=== PATIENT | female | born 1975 | race Two or more races ===

== ENCOUNTER 2025-04-20 13:40 | Inpatient (IN) | payer MEDICAID ==
[~2025-04-20] VITALS: Ht 162.6 cm; Wt 81.4 kg
[~2025-04-20 13:40] MED LIST: PANT40TA2 PO; ZOFR4T PO
--- NOTE | 2025-04-20 14:38 | ECG ---
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
--- NOTE | 2025-04-20 14:50 | ED.PDOC ---
HPI Comments 49 y.o female presents to the ED for a chief complaint of substernal chest pain associated with right arm pain and SOB that started 4-5 hours ago. Patient describes pain as a tightness that is constant, and rating a 7/10 on the pain scale. Patient reports previous chest pain but this episode is different and worse. Patient denies any nausea, vomiting, fever, chills or leg swelling. Patient admits to using methamphetamine 3-4 days ago and has a history of tobacco and alcohol use. Chief Complaint: Shortness of Breath Time Seen by MD: 14:33 Primary Care Provider: AUDREY Reviewed Notes: Nurses Notes, Medications, Allergies Allergies: Coded Allergies: NO KNOWN ALLERGIES (Unverified , 07/22/24) Home Meds Active Scripts Pantoprazole Sodium Sesquihydr (Protonix) 40 Mg Tab, 40 MG PO DAILY, #30 TAB Prov:TRACEY SANDOVAL MD 07/22/24 Ondansetron Odt 4MG Tab (ZOFRAN PO) 4 Mg Tb, 4 MG PO Q8HP PRN for 5 Days, #15 TAB ODT TAB-DISSOLVE IN MOUTH, THEN SWALLOW Prov:TRACEY SANDOVAL MD 07/22/24 Information Source: Patient Mode of Arrival: Ambulatory Severity: Moderate Timing: Hours Duration: Since onset Location: Substernal Radiation: Arm (R) Quality: Tightness Onset: At Rest Cardiac Risk Factors: Smoker PE Risk Factors: None History of: None Modifying Factors: Nothing Associated Signs and Symptoms: SOB Past Medical History PAST MEDICAL HISTORY: Anxiety, Schizophrenia Surgical History: Appendectomy, Cholecystectomy, Tubal Ligation Surgical History (Other): left knee and ankle replacement 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 Family History Family History: Reviewed,noncontributory to illness Social History Smoker: Cigarettes Alcohol: Rarely Drugs: Denies Drug Use Lives In: Home Constitutional: denies: chills, diaphoresis, fatigue, fever, malaise, sweats, weakness, others EENTM: denies: blurred vision, double vision, ear bleeding, ear discharge, ear drainage, ear pain, ear ringing, eye pain, eye redness, hearing loss, mouth pain, mouth swelling, nasal discharge, nose bleeding, nose congestion, nose pain, photophobia, tearing, throat pain, throat swelling, voice changes, others Respiratory: reports: SOB at rest, shortness of breath; denies: cough, hemoptysis, orthopnea, SOB with excertion, stridor, wheezing, others Cardiovascular: reports: chest pain; denies: dizzy spells, diaphoresis, Dyspnea on exertion, edema, irregular heart beat, left arm pain, lightheadedness, palpitations, PND, syncope, others Gastrointestinal: denies: abdomen distended, abdominal pain, blood streaked bowels, constipated, diarrhea, dysphagia, difficulty swallowing, hematemesis, melena, nausea, poor appetite, poor fluid intake, rectal bleeding, rectal pain, vomiting, others Genitourinary: denies: abnormal vagina bleeding, burning, dyspareunia, dysuria, flank pain, frequency, hematuria, incontinence, pain, , vagina discharge, urgency, others Neurological: denies: dizziness, fainting, headache, left sided numbness, left sided weakness, numbness, paresthesia, pre-existing deficit, right sided numbness, right sided weakness, seizure, speech problems, tingling, tremors, weakness, others Musculoskeletal: denies: back pain, gout, joint pain, joint swelling, muscle pain, muscle stiffness, neck pain, others Integumetry: denies: bruises, change in color, change in hair/nails, dryness, laceration, lesions, lumps, rash, wounds, others Allergic/Immunocompromised: denies: Difficulty Healing, Frequent Infections, Hives, Itching, others Hematologic/Lymphatic: denies: anemia, blood clots, easy bleeding, easy bruising, swollen glands, others Endocrine: denies: excessive hunger, excessive sweating, excessive thirst, excessive urination, flushing, intolerance to cold, intolerance to heat, une xplained weight gain, unexplained weight loss, others Psychiatric: denies: anxiety, bipolar disorder, depression, hopeless, panic disorder, schizophrenia, sleepless, suicidal, others All Other Systems: Reviewed and Negative Physical Exam General Appearance: Moderate Distress HEENT: Normal ENT Inspection, Pharynx Normal, TMs Normal Neck: Full Range of Motion, Non-Tender, Normal, Normal Inspection Respiratory: Chest Non-Tender, Lungs Clear, No Accessory Muscle Use, No Respiratory Distress, Normal Breath Sounds Cardiovascular: No Edema, No JVD, No Murmur, No Gallop, Normal Peripheral Pulses, Regular Rate/Rhythm Breast Exam: Deferred Gastrointestinal: No Organomegaly, Non Tender, No Pulsatile Mass, Normal Bowel Sounds, Soft Genitalia: Deferred Pelvic: Deferred Rectal: Deferred Extremities: No calf tenderness, Normal capillary refill, Normal inspection, Normal range of motion, Non-tender, No pedal edema Musculoskeletal : Apperance: Normal Neurologic: Alert, 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 Was a procedure done?: No CP Differential Dx Differential Diagnosis: N/A Differential Diagnosis: Angina, Chest Wall Pain, Costochondritis, Gastritis, Myocardial Infarction, Pericarditis X-Ray, Labs, Meds, VS Vital Signs Date Time Temp Pulse Resp B/P (MAP) Pulse Ox O2 Delivery O2 Flow Rate FiO2 04/20/25 15:23 98.0 94 14 94/57 (69) 95 98.0 04/20/25 15:23 94 18 95 Room Air* 0 21 04/20/25 14:50 97 04/20/25 13:59 97 04/20/25 13:52 98.4 103 20 91/67 (75) 96 98.4 Lab Test 04/20/25 16:07 04/20/25 15:07 04/20/25 14:35 Range/Units Troponin I High Sensitivity < 3 L < 3 L </=34 ng/L White Blood Count 9.4 4.4-10.8 10^3/uL Red Blood Count 5.01 4.0-5.20 10^6/uL Hemoglobin 14.8 12.2-16.2 g/dL Hematocrit 44.0 36.0-46.0 % Mean Corpuscular Volume 87.7 80.0-100.0 fL Mean Corpuscular Hemoglobin 29.5 28.0-32.0 pg Mean Corpuscular Hemoglobin Concent 33.7 32.0-36.0 g/dL Red Cell Distribution Width 13.6 11.8-14.3 % Platelet Count 334 140-450 10^3/uL Mean Platelet Volume 8.0 6.9-10.8 fL Neutrophils (%) (Auto) 66.0 37.0-80.0 % Lymphocytes (%) (Auto) 19.8 10.0-50.0 % Monocytes (%) (Auto) 7.9 0.0-12.0 % Eosinophils (%) (Auto) 5.8 0.0-7.0 % Basophils (%) (Auto) 0.5 0.0-2.0 % Neutrophils # (Auto) 6.2 1.6-8.6 10 ^3/uL Lymphocytes # (Auto) 1.9 0.4-5.4 10 ^3/uL Monocytes # (Auto) 0.7 0-1.3 10 ^3/uL Eosinophils # (Auto) 0.5 0-0.8 10 ^3/uL Basophils # (Auto) 0 0-0.2 10 ^3/uL Nucleated Red Blood Cells 0.1 % D-Dimer, Quantitative < 0.19 0.0-0.49 mg/L FEU Sodium Level 141 136-145 mmol/L Potassium Level 4.2 3.5-5.1 mmol/L Chloride Level 105 98-107 mmol/L Carbon Dioxide Level 29 20-31 mmol/L Anion Gap 7 5-15 Blood Urea Nitrogen 21 9-23 mg/dL Creatinine 0.89 0.550-1.02 mg/dL Glomerular Filtration Rate Calc 79 >90 mL/min BUN/Creatinine Ratio 23.6 H 10.0-20.0 Serum Glucose 97 74-106 mg/dL Calcium Level 10.0 8.7-10.4 mg/dL Urine Opiates Screen Neg NEGATIVE Urine Fentanyl Screen Neg NEGATIVE Urine Barbiturates Screen Neg NEGATIVE Urine Phencyclidine Screen Neg NEGATIVE Urine Amphetamines Screen Pos NEGATIVE Urine Benzodiazepines Screen Neg NEGATIVE Urine Cocaine Screen Neg NEGATIVE Urine Cannabinoids Screen Neg NEGATIVE Current Medications Medications (Trade) Dose Ordered Sig/Rika Route Start Time Stop Time Status Last Admin Aspirin 162 mg ONCE ONCE PO 04/20/25 14:45 04/20/25 14:46 DC 04/20/25 14:55 The patient was given aspirin here in the emergency department The urine tox is positive for methamphetamines The patient's CBC and chemistry panel is within normal limits The troponin level x2 is negative The patient was given aspirin here in the emergency department's The chest x-ray shows: No sign of any abnormalities The patient is being admitted Images Reviewed?: Images reviewed and evaluated by me Time of 1ST Reevaluation: 14:47 Reevaluation 1ST: Unchanged Patient Education/Counseling: Diagnosis, Treatment, Prognosis Family Education/Counseling: No Family Present Departure 1 Departure Time of Disposition: 17:27 Impression: Primary Impression: Acute coronary syndrome Additional Impression: Methamphetamine use Disposition: 09 ADMITTED INPATIENT Admit to: Tele Condition: Fair Critical Care Note Critical Care Time?: Yes (35 min-critical care time only) Stability Stability form required: Yes Unstable for transfer: Telemetry monitoring (Telemetry monitoring required), ED Physician Assesment (Clinical assesment) Heart Score Heart Score: Heart Score Response (Comments) Value History Moderate Suspicious 1 EKG Repolarization Disturb 1 Age 45-64 1 Risk Factors >3 or Hx ASHD 2 Troponin Normal limit 0 Total 5 I personally scribed for TRACEY SANDOVAL MD ([email or web address]) on 04/20/25 at 14:50. Electronically submitted by Katerin Pete ([facility]). TRACEY SANDOVAL MD April 20, 2025 14:50
[2025-04-20] MEDS: ASPirin 81 mg TAB PO ONE (14:55)
[2025-04-20 15:23] VITALS: PULSE 94; RESP 18; O2SAT 95
[2025-04-20 15:27] LABS: Basophils # (auto) 0 10 ^3/uL (0-0.2); Basophils % (auto) 0.5 % (0.0-2.0); Eosinophils # (auto) 0.5 10 ^3/uL (0-0.8); Eosinophils % (auto) 5.8 % (0.0-7.0); Hemoglobin 14.8 g/dL (12.2-16.2); Lymphocytes # (auto) 1.9 10 ^3/uL (0.4-5.4); Lymphocytes % (auto) 19.8 % (10.0-50.0); Mean Corpuscular Hemoglobin 29.5 pg (28.0-32.0); Mean Corpuscular Hgb Conc. 33.7 g/dL (32.0-36.0); Mean Corpuscular Volume 87.7 fL (80.0-100.0); Monocytes # (auto) 0.7 10 ^3/uL (0-1.3); Monocytes % (auto) 7.9 % (0.0-12.0); Neutrophils # (auto) 6.2 10 ^3/uL (1.6-8.6); Nucleated Red Blood Cells % 0.1 %; Platelet Count (auto) 334 10^3/uL (140-450); Red Blood Cells 5.01 10^6/uL (4.0-5.20); Red Cell Distribution Width 13.6 % (11.8-14.3); White Blood Cell 9.4 10^3/uL (4.4-10.8)
[2025-04-20 15:32] LABS: Amphetamine Screen, Urine Pos (NEGATIVE); Barbiturate Scree,Urine Neg (NEGATIVE); Benzodiazephine Screen, Urine Neg (NEGATIVE); Cannabinoid Screen, Urine Neg (NEGATIVE); Cocaine Screen, Urine Neg (NEGATIVE); Opiate Scree,Urine Neg (NEGATIVE); Phencyclidine Screen, Urine Neg (NEGATIVE)
[2025-04-20 15:33] LABS: Chloride 105 mmol/L (98-107); Potassium 4.2 mmol/L (3.5-5.1); Sodium 141 mmol/L (136-145)
[2025-04-20 15:34] LABS: Anion Gap 7 (5-15); Carbon Dioxide 29 mmol/L (20-31)
[2025-04-20 15:39] LABS: BUN/Creatinine Ratio 23.6 (10.0-20.0); Blood Urea Nitrogen 21 mg/dL (9-23); Glucose 97 mg/dL (74-106)
--- NOTE | 2025-04-20 16:18 | DVHHP2 ---
Admitting Diagnosis: Chest pain History of Present Illness 49 y.o female presents to the ED for a chief complaint of substernal chest pain associated with right arm pain and SOB that started 4-5 hours ago. Patient describes pain as a tightness that is constant, and rating a 7/10 on the pain scale. Patient reports previous chest pain but this episode is different and worse. Patient denies any nausea, vomiting, fever, chills or leg swelling. Patient admits to using methamphetamine 3-4 days ago and has a history of tobacco and alcohol use. 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 Family History Family History: Reviewed,noncontributory to illness Social History Smoker: Cigarettes Alcohol: Rarely Drugs: Denies Drug Use Lives In: Home Allergies: Coded Allergies: NO KNOWN ALLERGIES (Unverified , 07/22/24) Home Meds Active Scripts Pantoprazole Sodium Sesquihydr (Protonix) 40 Mg Tab, 40 MG PO DAILY, #30 TAB Prov:TRACEY SANDOVAL MD 07/22/24 Ondansetron Odt 4MG Tab (ZOFRAN PO) 4 Mg Tb, 4 MG PO Q8HP PRN for 5 Days, #15 TAB ODT TAB-DISSOLVE IN MOUTH, THEN SWALLOW Prov:TRACEY SANDOVAL MD 07/22/24 Vital Signs Vital Signs Date Time Temp Pulse Resp B/P (MAP) Pulse Ox O2 Delivery O2 Flow Rate FiO2 04/20/25 15:23 98.0 94 14 94/57 (69) 95 98.0 04/20/25 15:23 Room Air* 0 21 Physical Exam Generally-9 years old woman, well nourished HEENT-atraumatic, normocephalic Heart-regular rate and rhythm Lungs clear to auscultate bilaterally Abdomen soft nontender nondistended Musculoskeletal-no edema cyanosis Neuro-AO x3, no focal deficits Results Labs Test 04/20/25 16:07 04/20/25 15:07 04/20/25 14:35 Range/Units Troponin I High Sensitivity < 3 L </=34 ng/L White Blood Count 9.4 4.4-10.8 10^3/uL Red Blood Count 5.01 4.0-5.20 10^6/uL Hemoglobin 14.8 12.2-16.2 g/dL Hematocrit 44.0 36.0-46.0 % Mean Corpuscular Volume 87.7 80.0-100.0 fL Mean Corpuscular Hemoglobin 29.5 28.0-32.0 pg Mean Corpuscular Hemoglobin Concent 33.7 32.0-36.0 g/dL Red Cell Distribution Width 13.6 11.8-14.3 % Platelet Count 334 140-450 10^3/uL Mean Platelet Volume 8.0 6.9-10.8 fL Neutrophils (%) (Auto) 66.0 37.0-80.0 % Lymphocytes (%) (Auto) 19.8 10.0-50.0 % Monocytes (%) (Auto) 7.9 0.0-12.0 % Eosinophils (%) (Auto) 5.8 0.0-7.0 % Basophils (%) (Auto) 0.5 0.0-2.0 % Neutrophils # (Auto) 6.2 1.6-8.6 10 ^3/uL Lymphocytes # (Auto) 1.9 0.4-5.4 10 ^3/uL Monocytes # (Auto) 0.7 0-1.3 10 ^3/uL Eosinophils # (Auto) 0.5 0-0.8 10 ^3/uL Basophils # (Auto) 0 0-0.2 10 ^3/uL Nucleated Red Blood Cells 0.1 % D-Dimer, Quantitative < 0.19 0.0-0.49 mg/L FEU Sodium Level 141 136-145 mmol/L Potassium Level 4.2 3.5-5.1 mmol/L Chloride Level 105 98-107 mmol/L Carbon Dioxide Level 29 20-31 mmol/L Anion Gap 7 5-15 Blood Urea Nitrogen 21 9-23 mg/dL Creatinine 0.89 0.550-1.02 mg/dL Glomerular Filtration Rate Calc 79 >90 mL/min BUN/Creatinine Ratio 23.6 H 10.0-20.0 Serum Glucose 97 74-106 mg/dL Calcium Level 10.0 8.7-10.4 mg/dL Urine Opiates Screen Neg NEGATIVE Urine Fentanyl Screen Neg NEGATIVE Urine Barbiturates Screen Neg NEGATIVE Urine Phencyclidine Screen Neg NEGATIVE Urine Amphetamines Screen Pos NEGATIVE Urine Benzodiazepines Screen Neg NEGATIVE Urine Cocaine Screen Neg NEGATIVE Urine Cannabinoids Screen Neg NEGATIVE Primary Diagnosis chest pain likely due to amphetamine use coronary spasm Plan EKG normal sinus rhythm, urine drug study positive for amphetamine D-dimer negative Check echo of the heart for abnormal structure Troponin negative. Trend troponin Pain control IV fluids Cardiac diet Full code Lovenox for DVT prophylaxis No GI prophylaxis needed Plan discussed with: Patient Problems List: (1) Chest pain (2) Methamphetamine use Status: Acute Date of Service: April 20, 2025 Billing Provider: RAFA BRYANT MD Common Visit Codes: [id number] INP/OBS CARE (MOD) RAFA BRYANT MD April 20, 2025 16:18
[2025-04-20] MEDS ORDERED: ACETAMINOPHEN 325 MG TAB PO PRN (16:45)
[2025-04-20] MEDS ORDERED: NITROGLYCERIN 0.4 MG SL TAB SL PRN (16:45)
[2025-04-20] MEDS ORDERED: DOCUSATE SOD 100 MG CAP PO PRN (16:45)
[2025-04-20] MEDS ORDERED: HYDROcodone-ACET 5/325MG TAB PO PRN (16:45)
[2025-04-20] MEDS ORDERED: MORPHINE SULFATE INJ 2 MG/ml SYRG IV PRN (16:45)
[2025-04-20] MEDS ORDERED: ONDANSETRON HCL 4 MG/2 ML VIAL IV PRN (16:45)
[2025-04-20 16:55] VITALS: BP 102/68; PULSE 86; RESP 18; TEMP 98.1; O2SAT 99
[2025-04-20 20:56] VITALS: BP 85/50; PULSE 71; RESP 17; TEMP 98; O2SAT 96
[2025-04-20] MEDS: SODIUM CHLOR 0.9% PF (SALINE LOCK) 10ML VIAL/SYR IV SCH (21:00)
[2025-04-20 21:56] VITALS: BP 90/56; PULSE 76; RESP 17; TEMP 96.5; O2SAT 94
[2025-04-20] MEDS ORDERED: NITR-52 PO (22:04)
[2025-04-20] MEDS ORDERED: VENL75CA3 PO (22:04)
[2025-04-20] MEDS ORDERED: TOPI100T68 PO (22:04)
[2025-04-20] MEDS ORDERED: TRAZ1TAB12 PO (22:04)
[2025-04-21 00:18] VITALS: BP 92/55; PULSE 60; RESP 17; TEMP 97.8; O2SAT 97
[2025-04-21 05:00] VITALS: BP 76/51; PULSE 72; RESP 17; TEMP 96.8; O2SAT 94; O2SAT 97
[2025-04-21 05:59] VITALS: BP 98/62
[2025-04-21 08:00] VITALS: PULSE 63; RESP 17; O2SAT 99
[2025-04-21 09:00] VITALS: BP 85/54; PULSE 63; RESP 17; TEMP 97.3; O2SAT 99
[2025-04-21] MEDS: ENOXAPARIN SOD 40 MG/0.4 ML SYRINGE SC SCH (09:59)
[2025-04-21 13:00] VITALS: BP 104/70; PULSE 79; RESP 18; TEMP 97; O2SAT 97
--- NOTE | 2025-04-21 13:33 | DVHPN2 ---
Reviewed: Care Plan, H&P, Labs, Medications, Previous Orders, Radiology Changes from previous H/P or p: No Changes Objective Vitals Vital Signs Date Time Temp Pulse Resp B/P (MAP) Pulse Ox O2 Delivery O2 Flow Rate FiO2 04/21/25 09:00 97.3 63 17 85/54 (64) 99 97.3 04/21/25 08:00 Room Air* 0 21 Intake/Output Intake and Output 04/21/25 07:00 Intake Total 1000 ml Balance 1000 ml Intake Oral 1000 ml # Voids 4 Medications Current Medications Medications Dose Ordered Sig/Rika Route Start Time Stop Time Status Last Admin Dose Admin Sodium Chloride 10 ml Q8HR IV 04/20/25 22:00 04/21/25 06:36 10 ML Docusate Sodium 100 mg BIDPRN PRN PO 04/20/25 16:45 Acetaminophen 650 mg Q6HP PRN PO 04/20/25 16:45 Acetaminophen/ Hydrocodone Bitart 1 tab Q4HP PRN PO 04/20/25 16:45 Ondansetron HCl 4 mg Q4HP PRN IV 04/20/25 16:45 Enoxaparin Sodium 40 mg DAILY SC 04/21/25 10:00 04/21/25 09:59 40 MG Nitroglycerin 0.4 mg Q5MINP PRN SL 04/20/25 16:45 Morphine Sulfate 2 mg Q30M PRN IV 04/20/25 16:45 Laboratory Results Laboratory Tests 04/20/25 15:07 Chemistry Test 04/20/25 15:07 Calcium Level 10.0 mg/dL (8.7-10.4) Coagulation Test 04/20/25 15:07 D-Dimer, Quantitative < 0.19 mg/L FEU (0.0-0.49) Labs and/or images reviewed: Labs reviewed by me, Image(s) reviewed by me Assessment/Plan Assessment/Plan Chest pain probably secondary to amphetamine abuse troponin negative x3, cardiology consult Schizophrenia Anxiety Amphetamine abuse: Counseling Plan discussed with: Patient My Orders Orders - ROSEMARY RUIZ MD Procedure Category Date Status Time * Cardiology Consult CONS 04/21/25 Verified 13:30 Date of Service: April 21, 2025 Billing Provider: ROSEMARY RUIZ MD Common Visit Codes: [id number] INP/OBS CARE(HIGH) ROSEMARY RUIZ MD April 21, 2025 13:33
--- NOTE | 2025-04-21 14:29 | DVHINCON2 ---
Date Seen: April 21, 2025 Referring Physician MD William Reason for Consultation Chest pain, amphetamine abuse History of Present Illness This is a 49-year-old female who presented to the emergency room with a chief complaint of chest pain for two days. Describes his chest pain as substernal, sharp in nature, constant, radiating to the right upper extremity, and associated with mild shortness of breath. At time of assessment, the patient denied any further cardiac symptoms. Endorses her symptoms to an anxiety attack. She admits to recent methamphetamine use three days ago. States she has been using methamphetamines on an of since 15 y.o. She underwent a 12 lead electrocardiogram revealing a sinus rhythm suggestive of left atrial enlargement and nonspecific global ST changes. Serial troponin levels are negative. Significant medical history includes obesity, anxiety, schizophrenia, tobacco use, and methamphetamine abuse. Past Medical History Past medical history reviewed. No other significant than mentioned above. Past Surgical History Appendectomy Cholecystectomy Left knee/ankle BTL Family History: Patient reports no known family medical history. Family History Family history reviewed. Denies for cardiovascular disease. Social History Denies the use of alcohol. Admits to methamphetamine use once per week. Smokes three cigarettes per day. Allergies: Coded Allergies: NO KNOWN ALLERGIES (Unverified , 07/22/24) Home Meds Active Scripts Pantoprazole Sodium Sesquihydr (Protonix) 40 Mg Tab, 40 MG PO DAILY, #30 TAB Prov:TRACEY SANDOVAL MD 07/22/24 Ondansetron Odt 4MG Tab (ZOFRAN PO) 4 Mg Tb, 4 MG PO Q8HP PRN for 5 Days, #15 TAB ODT TAB-DISSOLVE IN MOUTH, THEN SWALLOW Prov:TRACEY SANDOVAL MD 07/22/24 Reported Medications Trazodone Hcl (Trazodone Hcl) 150 Mg Tab, 200 MG PO, MG 04/20/25 Venlafaxine Hydrochloride (Effexor Xr) 75 Mg Cap, 75 MG PO DAILY, CAP 04/20/25 Topiramate (Topiramate) 100 Mg Tab, 100 MG PO DAILY for 30 Days, MG 04/20/25 Nitrofurantoin (Nitrofurantoin) 100 Mg Cap, 100 MG PO BID, CAP 04/20/25 Home Meds Home medications reviewed. Current Medications Current Medications Medications (Trade) Dose Ordered Sig/Rika Route PRN Reason Start Time Stop Time Status Last Admin Sodium Chloride (Saline Lock Ns) 10 ml Q8HR IV 04/20/25 22:00 04/21/25 14:13 Docusate Sodium (Colace Capsule) 100 mg BIDPRN PRN PO FOR CONSTIPATION 04/20/25 16:45 Acetaminophen (Tylenol Tablet) 650 mg Q6HP PRN PO PAIN SCALE 1-3 OR TEMP>100.4 04/20/25 16:45 Acetaminophen/ Hydrocodone Bitart ([place] 5/325MG Tab) 1 tab Q4HP PRN PO MODERATE PAIN (4-6 PAIN SCALE) 04/20/25 16:45 Ondansetron HCl (Zofran) 4 mg Q4HP PRN IV NAUSEA / VOMITING 04/20/25 16:45 Enoxaparin Sodium (Lovenox) 40 mg DAILY SC 04/21/25 10:00 04/21/25 09:59 Nitroglycerin (Ntrostat Sublingual) 0.4 mg Q5MINP PRN SL FOR CHEST PAIN 04/20/25 16:45 Morphine Sulfate 2 mg Q30M PRN IV FOR CHEST PAIN 04/20/25 16:45 Review of Systems Constitutional: No symptom reported Ears, Nose, & Throat: No symptom reported Eyes: No symptom reported Neurological: No symptoms reported Pulmonary/Respiratory: No symptom reported Cardiovascular: Chest pain Gastrointestinal: No symptom reported Genitourinary: No symptom reported Musculoskeletal: No symptom reported Skin: No symptom reported Psychiatric: No symptom reported Endocrine: No symptom reported Hemotologic/Lymphatic: No symptom reported Vital Signs Vital Signs Date Time Temp Pulse Resp B/P (MAP) Pulse Ox O2 Delivery O2 Flow Rate FiO2 04/21/25 13:00 97.0 79 18 104/70 (81) 97 97.0 04/21/25 08:00 Room Air* 0 21 Physical Exam General Appearance: Cooperative. Well developed. Obese. In no acute distress Head Exam: Normal inspection Neck Exam: Normal inspection. Non-tender. Normal alignment Pulmonary/Respiratory: Chest non-tender. Clear bilateral breath sounds Cardiovascular/Chest: Regular rate and rhythm. S1, S2. Sinus rhythm with nonspecific ST changes. No murmurs. No JVD. Peripheral Pulses: 2+ Radial (R). 2+ Radial (L). 2+ Pedal (R). 2+ Pedal (L) Abdominal Exam: Normal bowel sounds. Soft. Nontender. No hepatospenomegaly. No masses Ankle Exam: Negative ankle edema Lower extremities: Negative lower extremity edema Neuro/Mental Status: A&O x4. Coherent Thoughts/Psych: Normal thought pattern. Appropriate mood and affect. Pleasant Appearance: In no acute distress Skin Exam: Normal inspection. Normal color. Warm. Dry Labs/Diagnostic Data Labs Test 04/20/25 16:07 04/20/25 15:07 04/20/25 14:35 Range/Units Troponin I High Sensitivity < 3 L </=34 ng/L White Blood Count 9.4 4.4-10.8 10^3/uL Red Blood Count 5.01 4.0-5.20 10^6/uL Hemoglobin 14.8 12.2-16.2 g/dL Hematocrit 44.0 36.0-46.0 % Mean Corpuscular Volume 87.7 80.0-100.0 fL Mean Corpuscular Hemoglobin 29.5 28.0-32.0 pg Mean Corpuscular Hemoglobin Concent 33.7 32.0-36.0 g/dL Red Cell Distribution Width 13.6 11.8-14.3 % Platelet Count 334 140-450 10^3/uL Mean Platelet Volume 8.0 6.9-10.8 fL Neutrophils (%) (Auto) 66.0 37.0-80.0 % Lymphocytes (%) (Auto) 19.8 10.0-50.0 % Monocytes (%) (Auto) 7.9 0.0-12.0 % Eosinophils (%) (Auto) 5.8 0.0-7.0 % Basophils (%) (Auto) 0.5 0.0-2.0 % Neutrophils # (Auto) 6.2 1.6-8.6 10 ^3/uL Lymphocytes # (Auto) 1.9 0.4-5.4 10 ^3/uL Monocytes # (Auto) 0.7 0-1.3 10 ^3/uL Eosinophils # (Auto) 0.5 0-0.8 10 ^3/uL Basophils # (Auto) 0 0-0.2 10 ^3/uL Nucleated Red Blood Cells 0.1 % D-Dimer, Quantitative < 0.19 0.0-0.49 mg/L FEU Sodium Level 141 136-145 mmol/L Potassium Level 4.2 3.5-5.1 mmol/L Chloride Level 105 98-107 mmol/L Carbon Dioxide Level 29 20-31 mmol/L Anion Gap 7 5-15 Blood Urea Nitrogen 21 9-23 mg/dL Creatinine 0.89 0.550-1.02 mg/dL Glomerular Filtration Rate Calc 79 >90 mL/min BUN/Creatinine Ratio 23.6 H 10.0-20.0 Serum Glucose 97 74-106 mg/dL Calcium Level 10.0 8.7-10.4 mg/dL Urine Opiates Screen Neg NEGATIVE Urine Fentanyl Screen Neg NEGATIVE Urine Barbiturates Screen Neg NEGATIVE Urine Phencyclidine Screen Neg NEGATIVE Urine Amphetamines Screen Pos NEGATIVE Urine Benzodiazepines Screen Neg NEGATIVE Urine Cocaine Screen Neg NEGATIVE Urine Cannabinoids Screen Neg NEGATIVE Assessment Chest pain in the setting of methamphetamine use Methamphetamines dependence Anxiety/schizophrenia Nicotine dependence Obesity Plan/Recommendation (Dr. Thomas) The patient presents with chest pain in the setting of methamphetamine use, negative troponin levels, and a heart score of two placing her at a low risk for major cardiac events. Continue transthoracic echocardiogram to rule out structu ral heart disease. Consider an outpatient stress test if deemed necessary. Strongly counseled on methamphetamine and tobacco use cessation as well as risk factor modification including diet and exercise. In the setting of an unremarkable echocardiogram, there is no further cardiac workup indicated at this time. Thank you for allowing us to participate in this patient's care. P lisette call if you have any questions or concerns. This medical document was created using an electronic medical record system with voice recognition software and computerized dictation system. Although this document has been carefully reviewed, there might still be some phonetic and typographical errors. Occasional wrong-word or ``sound-alike substitutions may have occurred due to the inherent limitations of voice recognition software. These areas are purely typographical due to imperfections of the software programs and do not reflect any compromise in the patient's medical care. Please read the chart carefully and recognize, using context, where these substitutions have occurred. Plan discussed with: Patient, Other NYHA Physical activity limitations: NA Date of Service: April 21, 2025 Billing Provider: PEDRO LUIS NAJERA Cardiology Common Codes: [id number] INP/OBS CARE (High) PEDRO LUIS NAJERA April 21, 2025 14:29
--- NOTE | 2025-04-22 08:01 | DVHDS2 ---
Discharge Summary Date of Admission April 20, 2025 at 16:34 Date of Discharge: April 21, 2025 Admitting Diagnosis Chest pain Wounds: None Labs/Diagnostic Data: Laboratory Results Test 04/20/25 16:07 04/20/25 15:07 04/20/25 14:35 Troponin I High Sensitivity < 3 ng/L (</=34) White Blood Count 9.4 10^3/uL (4.4-10.8) Red Blood Count 5.01 10^6/uL (4.0-5.20) Hemoglobin 14.8 g/dL (12.2-16.2) Hematocrit 44.0 % (36.0-46.0) Mean Corpuscular Volume 87.7 fL (80.0-100.0) Mean Corpuscular Hemoglobin 29.5 pg (28.0-32.0) Mean Corpuscular Hemoglobin Concent 33.7 g/dL (32.0-36.0) Red Cell Distribution Width 13.6 % (11.8-14.3) Platelet Count 334 10^3/uL (140-450) Mean Platelet Volume 8.0 fL (6.9-10.8) Neutrophils (%) (Auto) 66.0 % (37.0-80.0) Lymphocytes (%) (Auto) 19.8 % (10.0-50.0) Monocytes (%) (Auto) 7.9 % (0.0-12.0) Eosinophils (%) (Auto) 5.8 % (0.0-7.0) Basophils (%) (Auto) 0.5 % (0.0-2.0) Neutrophils # (Auto) 6.2 10 ^3/uL (1.6-8.6) Lymphocytes # (Auto) 1.9 10 ^3/uL (0.4-5.4) Monocytes # (Auto) 0.7 10 ^3/uL (0-1.3) Eosinophils # (Auto) 0.5 10 ^3/uL (0-0.8) Basophils # (Auto) 0 10 ^3/uL (0-0.2) Nucleated Red Blood Cells 0.1 % D-Dimer, Quantitative < 0.19 mg/L FEU (0.0-0.49) Sodium Level 141 mmol/L (136-145) Potassium Level 4.2 mmol/L (3.5-5.1) Chloride Level 105 mmol/L (98-107) Carbon Dioxide Level 29 mmol/L (20-31) Anion Gap 7 (5-15) Blood Urea Nitrogen 21 mg/dL (9-23) Creatinine 0.89 mg/dL (0.550-1.02) Glomerular Filtration Rate Calc 79 mL/min (>90) BUN/Creatinine Ratio 23.6 (10.0-20.0) Serum Glucose 97 mg/dL (74-106) Calcium Level 10.0 mg/dL (8.7-10.4) Urine Opiates Screen Neg (NEGATIVE) Urine Fentanyl Screen Neg (NEGATIVE) Urine Barbiturates Screen Neg (NEGATIVE) Urine Phencyclidine Screen Neg (NEGATIVE) Urine Amphetamines Screen Pos (NEGATIVE) Urine Benzodiazepines Screen Neg (NEGATIVE) Urine Cocaine Screen Neg (NEGATIVE) Urine Cannabinoids Screen Neg (NEGATIVE) Other Laboratory Tests 04/20/25 15:07 Brief Hx & Hospital Course: 49-year-old female with no previous medical history came in admitted for chest pain troponin negative x3 patient has a history of smoking also urine test showed methamphetamine positive patient was advised to quit smoking cigarettes and using methamphetamine. Echocardiogram pending seen by Cardiology. [place] to be noncardiac chest pain secondary to meth use cleared for discharge by Cardiology and patient left AMA before formal discharge. Consults/Reason for consult Cardiology Operations or Procedures Echocardiogram result pending Condition at Discharge: Fair Final Diagnosis/Problems List Chest pain in the setting of methamphetamine use Methamphetamines dependence Anxiety/schizophrenia Nicotine dependence Obesity Discharge Disposition: Home Discharge Instruct/Medications Diet: Cardiac 2g Na,low cholest Activity: Light activity Follow Up/Referral: Follow up With your primary doctor Stop using methamphetamine Medications: none 35 (Time taken for discharge summary 35 minutes) Discharge Statement: "Patient was advised to return to the ER or call 911 if any headaches, dizziness, shortness of breath, chest pain, abdominal pain, bleeding, fevers, or worsening of medical condition. Patient was counseled about treatment plan, medications, possible side effects, patientverbalized understanding. All questions were answered to the best of my ability. This discharge took greater then 30 minutes in planning, reviewing documentation, counseling the patient, and discussing with other team members." ASSESSMENT ASSESSMENT Hospital Course Uneventful Assessment Chest pain in the setting of methamphetamine use Methamphetamines dependence Anxiety/schizophrenia Nicotine dependence Obesity Date of Service: April 22, 2025 Billing Provider: ROSEMARY RUIZ MD Common Visit Codes: 30829-QTU/OBS DISCH DAY >30min ROSEMARY RUIZ MD April 22, 2025 08:01
--- NOTE | 2025-04-23 09:15 | DI ---
CHEST TWO VIEWS ROUTINE CLINICAL HISTORY: sob and CP COMPARISON: None TECHNIQUE: Frontal and lateral view of the chest was obtained FINDINGS: Lines and Tubes: None Lungs: No focal consolidation. Pleura: No effusion. No pneumothorax. Cardiomediastinal contours: Unremarkable Bones: No acute osseous abnormality. IMPRESSION: 1. No acute cardiopulmonary disease. SER MACHINE ANA
--- NOTE | 2025-04-24 09:04 | DVHSR ---
APPROVED REPORT EXAM: Two-dimensional and M-mode echocardiogram with Doppler and color Doppler. Blood Pressure: 98/62 mmHg INDICATION Chest Pain RISK FACTORS Height: 5'4", Weight: 179 DIMENSIONS LVDd4.4 (3.8-5.7cm)LA (2D)3.9 (1.9-4.0cm)Aortic Root3.7 (2.0-3.7cm) LVDs2.7 (2.5-4.0cm)LA (MM) (1.9-4.0cm)Aortic Cusp Exc2.1 (1.5-2.0cm) EF (%) 69.0 (55-70%)Rt. Atrium3.8 (1.9-4.0cm)Asc. Aorta3.3 cm IVSd1.1 (0.7-1.1cm)RV (D)3.2 (1.8-2.4cm) PWd0.9 (0.7-1.1cm) Mitral Valve MitralMitral Stenosis E wave0.84m/sMV Mean GR.mmHg A wave0.77m/sMV Peak GR.mmHg E/A ratio1.12D MVAcm2 DECEL [id number] 1/2 [place] Aortic Valve Aortic ValveAortic Stenosis V11.12m/Lance Mean GR.4mmHg V21.28m/Lance Peak GR.7mmHg LVOT Diameter2.1 (1.8-2.4cm)Doppler AVA3.03cm2 Pulmonic Valve V20.81m/s Conclusion Sinus rhythm. Right atrial enlargement. Valves are normal. EF of 60% with normal RV function. Dopplers unremarkable. No pericardial effusion masses or vegetations.
== END 2025-04-21 15:15 | disposition left against medical advice (07) | DRG 203 ==
LOC: ER 13:52 → OVERFLOW 16:34 → EAST 21:07
PROVIDERS: ADMIT Family Medicine; ATTEND Family Medicine
DX: R07.89 Other chest pain (principal); E66.9 Obesity, unspecified; F15.10 Other stimulant abuse, uncomplicated; Z53.29 Procedure and treatment not carried out because of patient's decision for other reasons; F20.9 Schizophrenia, unspecified; F41.9 Anxiety disorder, unspecified; F17.210 Nicotine dependence, cigarettes, uncomplicated; T43.655A Adverse effect of methamphetamines, initial encounter; Z71.51 Drug abuse counseling and surveillance of drug abuser; Z68.30 Body mass index [BMI] 30.0-30.9, adult; Z79.899 Other long term (current) drug therapy; Z90.49 Acquired absence of other specified parts of digestive tract; Z98.51 Tubal ligation status; Y92.89 Other specified places as the place of occurrence of the external cause
CPT/HCPCS: 36415; 71046; 80048; 80307; 84484; 85025; 85379; 93005; 93306; 99291; G0378